=== PATIENT | female | born 2000 | race Caucasian/White ===

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

== ENCOUNTER 2020-05-23 15:16 | Emergency (ER) | payer OTHER ==
[~2020-05-23] VITALS: Ht 162.6 cm; Wt 63.1 kg
[~2020-05-23 15:16] MED LIST: ONDA4TAB7 PO
[2020-05-23 15:30] VITALS: BP 122/80
--- NOTE | 2020-05-23 15:59 | RAD ---
INDICATION: Reason: fall / Spl. Instructions: / History: COMPARISON: None. IMPRESSION: Left knee: 3 views obtained. Suspected joint effusion without a definite acute fracture seen. No evidence of dislocation. Electronically signed by: Levy Olivarez MD (05/23/2020 3:56 PM) [id number]
--- NOTE | 2020-05-23 16:16 | PHYS DOC ---
Past History Past Medical History: No Pertinent History Past Surgical History: Alcohol Use: None Drug Use: None General Adult EDM: Chief Complaint: KNEE INJURY HPI: HPI: 19-year-old female presents with left knee pain. She was walking and slipped and fell a couple of days ago. As she was trying to quickly recover and get up she slipped again and rotated her left leg medially and in abduction. She now has some mild swelling of the left knee and it is gotten more painful instead of improving. She is concerned about a more significant injury. The pain is mostly the suprapatellar region and the lateral knee. She has no other complaints at this time. Review of Systems: Review of Systems: Constitutional: Denies fever or chills Eyes: Denies change in visual acuity HENT: Denies nasal congestion or sore throat Respiratory: Denies cough or shortness of breath Cardiovascular: Denies chest pain or edema GI: Denies abdominal pain, nausea, vomiting, bloody stools or diarrhea : Denies dysuria Musculoskeletal: Left knee pain Integument: Denies rash Neurologic: Denies headache, focal weakness or sensory changes Endocrine: Denies polyuria or polydipsia Lymphatic: Denies swollen glands Psychiatric: Denies depression or anxiety Heart Score: Risk Factors: Risk Factors: DM, Current or recent (<one month) smoker, HTN, HLP, family history of CAD, obesity. Risk Scores: Score 0 - 3: 2.5% MACE over next 6 weeks - Discharge Home Score 4 - 6: 20.3% MACE over next 6 weeks - Admit for Clinical Observation Score 7 - 10: 72.7% MACE over next 6 weeks - Early Invasive Strategies Allergies: Allergies: Allergies Coded Allergies Type Severity Reaction Last Updated Verified No Known Drug Allergies 11/20/18 No Physical Exam: PE: Constitutional: Well developed, well nourished, no acute distress, non-toxic appearance. [] HENT: Normocephalic, atraumatic, bilateral external ears normal, oropharynx moist, no oral exudates, nose normal. [] Eyes: PERRLA, EOMI, conjunctiva normal, no discharge. [] Neck: Normal range of motion, no tenderness, supple, no stridor. [] Cardiovascular:Heart rate regular rhythm, no murmur [] Lungs & Thorax: Bilateral breath sounds clear to auscultation [] Abdomen: Bowel sounds normal, soft, no tenderness, no masses, no pulsatile masses. [] Skin: Warm, dry, no erythema, no rash. [] Back: No tenderness, no CVA tenderness. [] Extremities: Left knee with mild suprapatellar tenderness, mild swelling, no ecchymosis, negative anterior and posterior drawer. Pain over the lateral collateral ligament with varus and valgus stress. [] Neurologic: Alert and oriented X 3, normal motor function, normal sensory function, no focal deficits noted. [] Psychologic: Affect normal, judgement normal, mood normal. [] Current Patient Data: Vital Signs: Vital Signs Date Time Temp Pulse Resp B/P (MAP) Pulse Ox O2 Delivery O2 Flow Rate FiO2 05/23/20 15:30 97.7 116 20 122/80 (94) 100 Room Air EKG: EKG: [] Radiology/Procedures: Radiology/Procedures: [] Impressions: INDICATION: Reason: fall / Spl. Instructions: / History: COMPARISON: None. IMPRESSION: Left knee: 3 views obtained. Suspected joint effusion without a definite acute fracture seen. No evidence of dislocation. Electronically signed by: Levy Olivarez MD (05/23/2020 3:56 PM) [id number] DICTATED AND SIGNED BY: LEVY OLIVAREZ MD DATE: 05/23/20 1556 CC: LEVY WINN DO; MONICA COE ~ Course & Med Decision Making: Course & Med Decision Making Pertinent Labs and Imaging studies reviewed. (See chart for details) I believe the patient has a strain of her lateral collateral ligament of the left knee. I cannot rule out meniscal injury. I have advised rest, ice, compression, and ibuprofen. If this does not improve within the next few days, the patient may need further evaluation and possible imaging. Patient states verbal understanding. She [place] She is stable for discharge at this time. She is off work for the next couple days. [] Dragon Disclaimer: Dragkenji Disclaimer: This electronic medical record was generated, in whole or in part, using a voice recognition dictation system. Departure Departure: Impression: Primary Impression: Sprain of lateral collateral ligament of left knee, initial encounter Disposition: 01 HOME/RESIDENCE PRIOR TO ADM Condition: STABLE Referrals: DLUGOPOLSKI,MONICA (PCP) Patient Instructions: Lateral Collateral Knee Ligament Sprain with Phase I Rehab-SportsMed Justification of Admission: Justification of Admission: Justification of Admission Dx: N/A LEVY WINN DO May 23, 2020 16:16
== END 2020-05-23 16:35 | disposition home or self-care (01) ==
LOC: ER 15:16
DX: S83.422A Sprain of lateral collateral ligament of left knee, initial encounter (principal); W01.0XXA Fall on same level from slipping, tripping and stumbling without subsequent striking against object, initial encounter; Y93.01 Activity, walking, marching and hiking; Y92.89 Other specified places as the place of occurrence of the external cause; Y99.8 Other external cause status
CPT/HCPCS: 73562; 99283

== ENCOUNTER 2020-12-26 10:37 | Emergency (ER) | payer OTHER ==
[~2020-12-26] VITALS: Ht 160 cm; Wt 62.0 kg
[2020-12-26 10:47] VITALS: BP 116/79
[2020-12-26] MEDS ORDERED: HYDR-2759 PO (11:19)
--- NOTE | 2020-12-26 11:20 | PHYS DOC ---
Past History Past Medical History: Asthma, Other Additional Past Medical Histor: TACHYCARDIA Past Surgical History: Alcohol Use: None Drug Use: None General Adult EDM: Chief Complaint: KNEE INJURY HPI: HPI: 20-year-old female presents with left knee pain. The patient has been having problems with this knee for several months. She is trying to get authorized for an MRI through the [employer]. 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 She is not sure if it rotated or if it was just from the running. She felt like there was a pop sensation. She was able to walk and continue her shift. Today she has some medial pain at the knee joint as well as above and below it. She denies any other injuries or complaints. Review of Systems: Review of Systems: Constitutional: Denies fever or chills Eyes: Denies change in visual acuity HENT: Denies nasal congestion or sore throat Respiratory: Denies cough or shortness of breath Cardiovascular: Denies chest pain or edema GI: Denies abdominal pain, nausea, vomiting, bloody stools or diarrhea : Denies dysuria Musculoskeletal: Left knee pain Integument: Denies rash Neurologic: Denies headache, focal weakness or sensory changes Endocrine: Denies polyuria or polydipsia Lymphatic: Denies swollen glands Psychiatric: Denies depression or anxiety Allergies: Allergies: Allergies Coded Allergies Type Severity Reaction Last Updated Verified No Known Drug Allergies 11/20/18 No Physical Exam: PE: Constitutional: Well developed, well nourished, no acute distress, non-toxic appearance. [] HENT: Normocephalic, atraumatic, bilateral external ears normal, oropharynx moist, no oral exudates, nose normal. [] Eyes: PERRLA, EOMI, conjunctiva normal, no discharge. [] Neck: Normal range of motion, no tenderness, supple, no stridor. [] Cardiovascular:Heart rate regular rhythm, no murmur [] Lungs & Thorax: Bilateral breath sounds clear to auscultation [] Abdomen: Bowel sounds normal, soft, no tenderness, no masses, no pulsatile masses. [] Skin: Warm, dry, no erythema, no rash. [] Back: No tenderness, no CVA tenderness. [] Extremities: Tenderness along the medial collateral ligament of the left knee. Solid end feel of the ACL and PCL with anterior and posterior drawer. Pain with valgus stress.[] Neurologic: Alert and oriented X 3, normal motor function, normal sensory function, no focal deficits noted. [] Psychologic: Affect normal, judgement normal, mood normal. [] Current Patient Data: Vital Signs: Vital Signs Date Time Temp Pulse Resp B/P (MAP) Pulse Ox O2 Delivery O2 Flow Rate FiO2 12/26/20 10:47 98.0 96 19 116/79 (91) 98 Room Air EKG: EKG: [] Radiology/Procedures: Radiology/Procedures: [] Heart Score: C/O Chest Pain: N/A Risk Factors: Risk Factors: DM, Current or recent (<one month) smoker, HTN, HLP, family history of CAD, obesity. Risk Scores: Score 0 - 3: 2.5% MACE over next 6 weeks - Discharge Home Score 4 - 6: 20.3% MACE over next 6 weeks - Admit for Clinical Observation Score 7 - 10: 72.7% MACE over next 6 weeks - Early Invasive Strategies Course & Med Decision Making: Course & Med Decision Making Pertinent Labs and Imaging studies reviewed. (See chart for details) The patient is already taking ibuprofen and Tylenol. Her knee x-ray is unremarkable for acute findings. Based on my exam, I believe she has a medial collateral ligament strain. She may or may not have meniscal injury as well. I have encouraged her to continue trying to get her MRI. She already has a brace at home and is icing the knee. I will give her a short course of [place] to help her sleep at night. She does not want to take pain pills during the day. She is stable for discharge at this time. [] Nomi Disclaimer: Nomi Disclaimer: This electronic medical record was generated, in whole or in part, using a voice recognition dictation system. Departure Departure: Impression: Primary Impression: Sprain of medial collateral ligament of left knee, initial encounter Disposition: HOME / SELF CARE / HOMELESS Condition: STABLE Referrals: MONICA COE (PCP) Patient Instructions: Medial Collateral Knee Ligament Sprain with Phase I Rehab-SportsMed Scripts Hydrocodone/Acetaminophen (Hydrocodone-Acetamin 5-325 mg) 1 Each Tablet 1 EACH PO Q4-6HRS PRN for PAIN, #10 TAB Prov: LEVY WINN DO 12/26/20 LEVY WINN DO December 26, 2020 11:19
--- NOTE | 2020-12-26 12:00 | RAD ---
XR KNEE _4 VIEWS WITH PATELLA_LT History: Reason: PAIN AFTER RUNNING YESTERDAY / Spl. Instructions: / History: Technique: 4 views left knee Comparison: None. Findings: Normal alignment. No fracture. No significant knee joint effusion. Soft tissues unremarkable. Impression: 1. No acute osseous abnormality. Electronically signed by: Danie Nance DO (12/26/2020 11:58 AM) [id number]
== END 2020-12-26 11:24 | disposition home or self-care (01) ==
LOC: ER 10:37
DX: S83.412A Sprain of medial collateral ligament of left knee, initial encounter (principal); J45.909 Unspecified asthma, uncomplicated; X50.9XXA Other and unspecified overexertion or strenuous movements or postures, initial encounter; Y93.02 Activity, running; Y92.89 Other specified places as the place of occurrence of the external cause; Y99.8 Other external cause status
CPT/HCPCS: 73564; 99283